=== PATIENT | female | born 1980 | race Caucasian/White ===

== ENCOUNTER → 2019-04-13 | Outpatient (REF) ==
--- NOTE | 2019-04-13 15:03 | REP ---
Lumbar spine three views: There are no comparisons. Vertebral body heights, interspacing alignment are normal. There is a small osteophyte anteriorly at L 03/04, compatible with mild degenerative disc disease. There is no spondylolysis or spondylolisthesis. The pedicles, facets and sacroiliac articulations are unremarkable. There are calcifications in the pelvis, likely phleboliths. Impression: Mild L3-4 degenerative disc disease, otherwise, negative lumbar spine. Electronically Signed by José Antonio Morales MD 04/13/2019 02:55 P
--- NOTE | 2019-04-13 15:04 | REP ---
Left ankle four views : There is no fracture or dislocation. Mineralization and joint spaces are normal. There are no calcifications or foreign bodies. There is a calcaneal plantar spur. Impression: Calcaneal plantar spur. Negative left ankle . Electronically Signed by José Antonio Morales MD 04/13/2019 02:56 P
== END ==
LOC: M SMT 13:23
PROVIDERS: ATTEND Internal Medicine
DX: Z02.71 Encounter for disability determination (principal)